=== PATIENT | male | born 1965 | race Caucasian/White ===

== ENCOUNTER 2018-10-25 08:14 | Emergency (ER) | payer MEDICAID ==
[2018-10-25] MEDS ORDERED: HYDROmorphone 1 mg/mL 1mL Syr IVP STA ×2 (08:44→12:09)
[2018-10-25 08:50] LABS: HEMATOCRIT 44.4 % (41.0-60); HEMOGLOBIN 15.1 gm/dL (12-16); MEAN CELL VOLUME 81.6 fl (80-99); MEAN CORPUSCULAR HEMOGLOBIN 27.8 pg (26.0-30.0); PLATELET COUNT 239 Th/cmm (150-400); RED BLOOD COUNT 5.44 Mil/cmm (4.30-5.70); RED CELL DISTRIBUTION WIDTH 11.8 % (11.5-20.0); WHITE BLOOD COUNT 9.6 Th/cmm (4.8-10.8)
[2018-10-25] MEDS ORDERED: HYDROmorphone 1 mg/mL 1mL Syr ONE ×2 (09:02→12:10)
[2018-10-25] MEDS ORDERED: IOHEXOL 300mgI/mL 100 ML VIAL ONE (09:02)
[2018-10-25 09:09] LABS: ALB/GLOB RATIO 1.2 (1.0-1.8); ALBUMIN 4.2 gm/dL (4.2-5.5); ALKALINE PHOSPHATASE 93 U/L (34-104); ANION GAP 17.2 (7.0-16.0); BILIRUBIN,DIRECT 0.43 mg/dL (0.0-0.2); BILIRUBIN,TOTAL 1.4 mg/dL (0.3-1.0); BUN - UREA NITROGEN 20 mg/dL (7-25); CARBON DIOXIDE 22.7 mEq/L (21.0-31.0); CHLORIDE 96 mEq/L (98-107); CREATININE - SERUM 0.9 mg/dL (0.7-1.3); GFR AFRICAN-AMERICAN > 60.0 ml/min (>90); GFR NON AFRICAN-AMERICAN > 60.0 ml/min; GLUCOSE 304 mg/dL (70-105); LIPASE 35 U/L (11-82); POTASSIUM SERUM 3.9 mEq/L (3.5-5.1); SGOT 32 U/L (13-39); SGPT/ALT 34 U/L (7-52); SODIUM SERUM 132 mEq/L (136-145); TOTAL PROTEIN,SERUM 7.8 gm/dL (6.0-8.3)
[2018-10-25 09:39] LABS: BAND NEUTROPHILE 1 % (0-10); NEUTROPHILS 86 % (40-80)
[2018-10-25 09:40] LABS: BASOPHIL 0 % (0-3); EOSINOPHIL 0 % (0-5); LYMPHOCYTE 9 % (20-50); MONOCYTE 4 % (2-10)
--- NOTE | 2018-10-25 09:55 | Diagnostic Imaging Report ---
CHEST X-RAY: AP view INDICATION: Pneumonia COMPARISON: None FINDINGS: There is mild elevation of right hemidiaphragm. There is no focal consolidation or pleural effusions The heart is normal in size. The osseous structures demonstrate no acute abnormalities. IMPRESSION: Mild elevation of the right hemidiaphragm. No focal consolidation identified.
--- NOTE | 2018-10-25 10:04 | Diagnostic Imaging Report ---
CT abdomen and pelvis with intravenous contrast Indication: Abdominal pain, rule out perforation Comparison: None, Technique: Axial images were obtained from the lung bases to the bilateral proximal femurs with IV contrast. Coronal reconstructions were made. total DLP: [id number], [id number] FINDINGS: Hypoventilatory and atelectatic changes of the lungs are noted. There is fatty infiltration of the liver. Exam is limited due to motion. No focal hepatic, splenic, or pancreatic lesions. There is a 1.2 cm exophytic right renal cysts and additional subcentimeter low-density lesions too small to characterize but probably cysts. There is a small left and moderate right fat-containing inguinal hernia. There is prominence of the appendix with a 4 mm appendicolith along the proximal aspect. Diffuse surrounding inflammatory changes are seen with phlegmonous changes and air pockets seen along the right lower quadrant likely at the tip of the appendix most suggestive of a perforated appendicitis. Small amount of fluid is seen in this level. Few air-fluid levels are seen in the terminal ileum with terminal ileal wall thickening. The osseous structures demonstrate degenerative changes. IMPRESSION: Findings most medical field representative of perforated appendicitis with extraluminal air pockets within the right lower quadrant and phlegmonous changes and possible very small early abscess formation. Surrounding inflammatory changes are also noted. Adjacent ileal wall thickening, likely reactive. Small left and moderate-sized fat-containing right inguinal hernia. Fatty liver. Mild atherosclerosis.
[2018-10-25] MEDS ORDERED: Sodium Chloride 0.9% 1,000 ML IV ONE (10:06)
[2018-10-25] MEDS ORDERED: Gentamicin 400 MG in Sodium Chloride 0.9% 100 ML IV SCH (10:15)
[2018-10-25] MEDS ORDERED: cefTRIAXone 2 GM in Sodium Chloride 0.9% 100 ML IV SCH (10:15)
[2018-10-25] MEDS ORDERED: metroNIDAZOLE 500mg/NS 100mL 500 MG/100 ML BAG IV SCH (10:15)
[2018-10-25] MEDS ORDERED: metroNIDAZOLE 500mg/NS 100mL 500 MG/100 ML BAG IV ONE ×2 (10:30)
[2018-10-25] MEDS ORDERED: Sodium Chloride 0.9% 500 ML IV ONE (10:36)
[2018-10-25] MEDS ORDERED: GENTAMICIN IV ONE (11:00)
[2018-10-25] MEDS ORDERED: SODIUM CHLORIDE 0.9% IV ONE (11:00)
--- NOTE | 2018-10-25 13:17 | ED Physician Chart ---
ED Chief Complaint/HPI - Patient Information Date Seen:: 10/25/18 Time Seen:: 08:30 Chief Complaint:: abdominal pain History of Present Illness:: weekend low grade lower abdominal progressive worse today powerfull pain vommitting black 3 times Allergies:: Allergies Allergy/AdvReac Type Severity Reaction Status Date / Time No Known Allergies Allergy Verified 10/25/18 08:28 Vitals:: Vital Signs - 8 hr 10/25/18 10/25/18 10/25/18 08:28 09:00 10:00 Temp 99.1 F HR 113 112 108 RR 18 16 16 BP 141/79 166/79 131/73 O2 Sat % 99 95 96 10/25/18 11:56 Temp 98.6 F HR 99 RR 20 BP 141/70 O2 Sat % 95 Historian:: Patient, Family Member Review:: Nurse's Note Reviewed ED Review of Systems - Review of Systems General/Constitutional: No fever Skin: No skin lesions Head: No headache Eyes: No loss of vision ENT: No earache Neck: No neck pain Cardio Vascular: No chest pain Pulmonary: No SOB GI: Vomiting, Diarrhea G/U: No hematuria Musculoskeletal: No bone or joint pain Endocrine: No polyuria Psychiatric: No prior psych history Hematopoietic: No bruising Allergic/Immuno: No urticaria Neurological: No focal symptoms ED Past Medical History - Past Medical History Past Medical History: DM Family Medical History - Family Member Mother Hx Family Hypertension: Yes Hx Family Diabetes: Yes ED Physical Exam - Physical Examination General/Constitutional: Alert, GCS 15, Ambulatory Head: Atraumatic Eyes: Lids, conjuctiva normal Skin: Nl inspection ENMT: External ears, nose nl Neck: Nontender Respiratory: Nl effort/Exclusion Cardio Vascular: RRR GI: No mass/bruits (peritoneal signs) Extremities: No tenderness or effusion, Full ROM ED Labs/Radiology/EKG Results - Lab Results Results: Laboratory Tests 10/25/18 10/25/18 08:40 08:40 WBC 9.6 RBC 5.44 Hgb 15.1 Hct 44.4 MCV 81.6 MCH 27.8 MCHC Differential 34.0 RDW 11.8 Plt Count 239 MPV 8.7 Add Manual Diff YES Neutrophils % ANALYTICAL LAB TECHNICIAN Band Neutrophils % 1 Lymphocytes % ANALYTICAL LAB TECHNICIAN Monocytes % ANALYTICAL LAB TECHNICIAN Eosinophils % ANALYTICAL LAB TECHNICIAN Basophils % ANALYTICAL LAB TECHNICIAN Neutrophils (Manual) 86 H Lymphocytes 9 L Monocytes 4 Eosinophils 0 Basophils 0 Sodium 132 L Potassium 3.9 Chloride 96 L Carbon Dioxide 22.7 Anion Gap 17.2 H BUN 20 Creatinine 0.9 Est GFR ( Amer) > 60.0 Est GFR (Non-Af Amer) > 60.0 BUN/Creatinine Ratio 22.2 Glucose 304 H Calcium 9.0 Total Bilirubin 1.4 H Direct Bilirubin 0.43 H AST 32 ALT 34 Alkaline Phosphatase 93 Total Protein 7.8 Albumin 4.2 Globulin 3.6 Albumin/Globulin Ratio 1.2 Lipase 35 - Radiology Results Results: appy with perf ED Assessment - Assessment General Assessment: surgeon contacted pharmacy contacted for dosing guidelines zosyn gentamicin flagyl fluids 2liter plus dilaudid 1 mg iv stable for transfer to nearest operating suite ED Septic Shock - . Is Septic Shock (SBP<90, OR Lactate>4 mmol\L) present?: No - <6hrs of presentation: Vital Signs: Vital Signs - 8 hr 10/25/18 10/25/18 10/25/18 08:28 09:00 10:00 Temp 99.1 F HR 113 112 108 RR 18 16 16 BP 141/79 166/79 131/73 O2 Sat % 99 95 96 10/25/18 11:56 Temp 98.6 F HR 99 RR 20 BP 141/70 O2 Sat % 95 ED Reassessment (Disposition) - Patient Disposition Discharge/Transfer:: Acute Care (other hosp) (immediate surgigal intervention needed) Condition at Disposition:: Stable, Improved
[2018-10-26 07:09] LABS: A1C 10.3 % (4.8-5.6)
== END 2018-10-25 12:20 | disposition short-term general hospital (02) ==
LOC: ER 08:14
DX: R10.30 Lower abdominal pain, unspecified (principal); R19.7 Diarrhea, unspecified; R11.10 Vomiting, unspecified
CPT/HCPCS: 99285; 96365; 96368; 96375; 96376; 71045; 74177; 36415; 85007; 85025; 83036; 83690; 80053; 80076; 87040 ×2; J2405; J1580; J2543; J0696; J7040 ×2; 90799; J1170; J7030; Q9967